=== PATIENT | female | born 1960 | race African-American/Black ===

== ENCOUNTER 2017-06-01 23:26 | Emergency (ER) | payer MEDICAID ==
[~2017-06-01] VITALS: Ht 170.2 cm; Wt 68.2 kg
[~2017-06-01 23:26] MED LIST: CYCL-1 PO; CYCL10TA10 PO; KETO10TA2 PO; ONDA4TAB6 PO; PANT20TA3 PO; SUCR1ORA2 PO
[2017-06-01] MEDS ORDERED: ondansetron 4mg rapidly disintigrating tab PO ONE (23:50)
[2017-06-01] MEDS ORDERED: dicyclomine 10 MG capsule PO ONE (23:50)
[2017-06-01] MEDS ORDERED: LIDOcaine Viscous 15ml cup PO ONE (23:50)
[2017-06-01] MEDS ORDERED: mag hydrox/Alum hydrox/simeth 30ml oral suspension PO ONE (23:50)
[2017-06-02] LABS: BASOPHILS % (AUTO) 0.3 % (0-1); EOSINOPHILS # (AUTO) 0.2 X10'3 (0-0.9); EOSINOPHILS % (AUTO) 2.2 % (0-6); HEMATOCRIT 42.7 % (35.0-45.0); HEMOGLOBIN 14.4 g/dl (12.0-16.0); LYMPHOCYTES # (AUTO) 1.2 X10'3 (1.1-4.8); LYMPHOCYTES % (AUTO) 14.9 % (21-51); MEAN CORPUSCULAR HGB CONC 33.6 % (33.0-36.5); MEAN CORPUSCULAR VOLUME 98.1 FL (78-98); MEAN PLATELET VOLUME 8.9 FL (7.4-10.4); MONOCYTES # (AUTO) 0.4 X10'3 (0-0.9); MONOCYTES % (AUTO) 4.6 % (2-12); NEUTROPHILS # (AUTO) 6.2 X10'3 (1.8-7.7); PLATELET COUNT 178 X10'3 (140-440); RED BLOOD COUNT 4.35 X10'6 (4.20-5.60); RED CELL DISTRIBUTION WIDTH 12.8 % (11.5-14.5)
[2017-06-02 00:10] LABS: PROTHROMBIN TIME 10.2 SECONDS (9.0-12.0)
[2017-06-02 00:14] LABS: ALANINE AMINOTRANSFERASE 20 U/L (12-78); ALBUMIN 3.3 G/DL (3.4-5.0); ALKALINE PHOSPHATASE 78 IU/L (46-116); ANION GAP 5 (8-16); ASPARTATE AMINO TRANSFERASE 18 U/L (10-37); BILIRUBIN,TOTAL 0.9 MG/DL (0.1-1.0); BLOOD UREA NITROGEN 15 MG/DL (7-18); CALCIUM 8.9 MG/DL (8.5-10.1); CHLORIDE 105 MMOL/L (99-107); CREATININE 0.88 MG/DL (0.40-0.90); GLUCOSE 110 MG/DL (70-104); POTASSIUM 4.1 MMOL/L (3.5-5.1); SODIUM 141 MMOL/L (135-145); TOTAL CARBON DIOXIDE 30.6 MMOL/L (24-32); TOTAL PROTEIN 6.7 G/DL (6.4-8.2); eGFR 80 ML/MIN
[2017-06-02 00:14] LABS: CLARITY,URINE CLEAR (Clear); COLOR,URINE YELLOW (Yellow); GLUCOSE, URINE NEGATIVE (Neg); KETONES,URINE TRACE mg/dl (Neg); LEUKOCYTE ESTERASE ,URINE NEGATIVE (Neg); NITRITES, URINE NEGATIVE (Neg); OCCULT BLOOD,URINE NEGATIVE (Neg); PH,URINE 6.5 (4.8-8.0); PROTEIN,URINE NEGATIVE (Neg)
[2017-06-02] MEDS ORDERED: pantoprazole 40 MG vial IV ONE (00:15)
[2017-06-02] MEDS ORDERED: normal saline 1000ML IV soln IVB ONE (00:15)
[2017-06-02] MEDS ORDERED: ondansetron/PF 4mg/2ml inj IV ONE (00:15)
[2017-06-02 00:31] LABS: UA COLLECTION TYPE CLN CATCH MIDSTREAM
[2017-06-02] MEDS ORDERED: ONDA8TAB6 PO (00:40)
[2017-06-02] MEDS ORDERED: OMEP40CA37 PO (00:40)
[2017-06-02 02:19] VITALS: BP 100/60
== END 2017-06-02 02:21 | disposition home or self-care (01) ==
LOC: ER 23:26
DX: R10.84 Generalized abdominal pain (principal); R11.10 Vomiting, unspecified; E11.9 Type 2 diabetes mellitus without complications; F12.10 Cannabis abuse, uncomplicated; F17.200 Nicotine dependence, unspecified, uncomplicated; G89.29 Other chronic pain; Z98.890 Other specified postprocedural states; Z95.0 Presence of cardiac pacemaker; Z79.899 Other long term (current) drug therapy
CPT/HCPCS: 36415; 80053; 81003; 85025; 85610; 96361; 96374; 96375; 99284; C9113; J2405; J7030

== ENCOUNTER 2017-07-15 01:03 | Emergency (ER) | payer MEDICAID ==
[~2017-07-15] VITALS: Ht 170.2 cm; Wt 62.5 kg
[~2017-07-15 01:03] MED LIST changes: +ONDA8TAB6 PO
[2017-07-15] MEDS ORDERED: diazepam 5mg tablet PO ONE (01:25)
[2017-07-15] MEDS ORDERED: ketorolac trometh. 30mg/ml inj. IM ONE (01:25)
[2017-07-15 01:47] LABS: CLARITY,URINE CLEAR (Clear); COLOR,URINE YELLOW (Yellow); GLUCOSE, URINE NEGATIVE (Neg); KETONES,URINE NEGATIVE (Neg); LEUKOCYTE ESTERASE ,URINE NEGATIVE (Neg); NITRITES, URINE NEGATIVE (Neg); OCCULT BLOOD,URINE NEGATIVE (Neg); PROTEIN,URINE NEGATIVE (Neg)
[2017-07-15 01:56] LABS: UA COLLECTION TYPE CLN CATCH MIDSTREAM
[2017-07-15] MEDS ORDERED: IBUP-1985 PO (02:18)
[2017-07-15] MEDS ORDERED: CYCL-1 PO (02:18)
[2017-07-15 02:42] VITALS: BP 92/61
== END 2017-07-15 02:44 | disposition home or self-care (01) ==
LOC: ER 01:04
DX: M54.5 Low back pain (principal); G89.29 Other chronic pain; E11.9 Type 2 diabetes mellitus without complications; F12.10 Cannabis abuse, uncomplicated; Z95.0 Presence of cardiac pacemaker; Z79.899 Other long term (current) drug therapy
CPT/HCPCS: 81003; 96372; 99283; J1885

== ENCOUNTER 2017-10-20 06:38 | Emergency (ER) | payer MEDICAID ==
[~2017-10-20] VITALS: Ht 172.7 cm; Wt 63.6 kg
[~2017-10-20 06:38] MED LIST changes: +COLC0.6T69 PO; +FAMO-128 PO; +IBUP-1985 PO; +INDO50CA PO
[2017-10-20] MEDS ORDERED: ondansetron/PF 4mg/2ml inj IV ONE ×2 (06:45→07:10)
[2017-10-20] MEDS ORDERED: morphine 4 MG/ML inj SYRINge IV PRN (06:45)
[2017-10-20] MEDS ORDERED: normal saline 1000ML IV soln IVB ONE (06:45)
[2017-10-20 07:09] LABS: BASOPHILS % (AUTO) 0.3 % (0-1); EOSINOPHILS # (AUTO) 0.1 X10'3 (0-0.9); EOSINOPHILS % (AUTO) 0.8 % (0-6); HEMATOCRIT 43.5 % (35.0-45.0); HEMOGLOBIN 14.8 g/dl (12.0-16.0); LYMPHOCYTES # (AUTO) 1.3 X10'3 (1.1-4.8); MEAN CORPUSCULAR HGB CONC 34.1 % (33.0-36.5); MEAN CORPUSCULAR VOLUME 96.8 FL (78-98); MEAN PLATELET VOLUME 8.9 FL (7.4-10.4); MONOCYTES # (AUTO) 0.5 X10'3 (0-0.9); MONOCYTES % (AUTO) 4.7 % (2-12); NEUTROPHILS # (AUTO) 8.6 X10'3 (1.8-7.7); NEUTROPHILS % (AUTO) 82.2 % (42-75); PLATELET COUNT 189 X10'3 (140-440); RED BLOOD COUNT 4.49 X10'6 (4.20-5.60); RED CELL DISTRIBUTION WIDTH 13.2 % (11.5-14.5); WHITE BLOOD COUNT 10.4 X10'3 (4.5-11.0)
[2017-10-20 07:24] LABS: ALANINE AMINOTRANSFERASE 16 U/L (12-78); ALBUMIN 3.3 G/DL (3.4-5.0); ALBUMIN/GLOBULIN RATIO 0.9 (1.1-1.5); ALKALINE PHOSPHATASE 87 IU/L (46-116); ANION GAP 6 (8-16); ASPARTATE AMINO TRANSFERASE 17 U/L (10-37); BILIRUBIN,TOTAL 0.5 MG/DL (0.1-1.0); BLOOD UREA NITROGEN 8 MG/DL (7-18); BUN/CREATININE RATIO 9.4 (6.6-38.0); CALCIUM 9.1 MG/DL (8.5-10.1); CHLORIDE 106 MMOL/L (99-107); CREATININE 0.85 MG/DL (0.40-0.90); GLUCOSE 140 MG/DL (70-104); LIPASE 173 U/L (73-393); SODIUM 140 MMOL/L (135-145); TOTAL CARBON DIOXIDE 28.4 MMOL/L (24-32); TOTAL PROTEIN 6.9 G/DL (6.4-8.2); eGFR 83 ML/MIN
[2017-10-20 07:50] VITALS: BP 169/80
[2017-10-20] MEDS ORDERED: haloperidol lactate 5mg/ml inj IM ONE (08:10)
[2017-10-20 08:42] LABS: CLARITY,URINE SLIGHTLY CLOUDY (Clear); COLOR,URINE YELLOW (Yellow); GLUCOSE, URINE NEGATIVE (Neg); KETONES,URINE NEGATIVE (Neg); LEUKOCYTE ESTERASE ,URINE NEGATIVE (Neg); NITRITES, URINE NEGATIVE (Neg); OCCULT BLOOD,URINE NEGATIVE (Neg); PROTEIN,URINE NEGATIVE (Neg)
[2017-10-20] MEDS ORDERED: ONDA8TAB9 PO (08:46)
[2017-10-20 08:49] LABS: UA COLLECTION TYPE CLN CATCH MIDSTREAM
[2017-10-20 08:50] LABS: BACTERIA,URINE 3+ /HPF (Neg); MUCUS STRANDS FEW /LPF (Neg); RBC,URINE 0-2 /HPF (0-2); SQUAMOUS EPITHELIAL CELL,UR FEW /LPF (FEW); WBC,URINE 0-4 /HPF (0-4)
== END 2017-10-20 09:22 | disposition home or self-care (01) ==
LOC: ER 06:39
DX: R10.9 Unspecified abdominal pain (principal); R11.2 Nausea with vomiting, unspecified; E11.9 Type 2 diabetes mellitus without complications; G89.29 Other chronic pain; F12.10 Cannabis abuse, uncomplicated; Z95.0 Presence of cardiac pacemaker; Z79.899 Other long term (current) drug therapy
CPT/HCPCS: 36415; 80053; 81001; 83690; 85025; 96361; 96372; 96374; 96375; 99284; J1630; J2270; J2405; J7030

== ENCOUNTER 2018-10-07 19:14 | Observation (INO) | payer MEDICAID ==
[~2018-10-07] VITALS: Ht 170.2 cm; Wt 60.0 kg
[~2018-10-07 19:14] MED LIST changes: -INDO50CA PO; +INDO50CA14 PO; +ONDA8TAB9 PO
[2018-10-07 19:58] LABS: BASOPHILS # (AUTO) 0.1 X10'3 (0-0.2); BASOPHILS % (AUTO) 1.8 % (0-1); EOSINOPHILS # (AUTO) 0.1 X10'3 (0-0.9); EOSINOPHILS % (AUTO) 2.4 % (0-6); HEMATOCRIT 42.5 % (35.0-45.0); HEMOGLOBIN 14.5 g/dl (12.0-16.0); LYMPHOCYTES # (AUTO) 3.2 X10'3 (1.1-4.8); LYMPHOCYTES % (AUTO) 56.8 % (21-51); MEAN CORPUSCULAR HEMOGLOBIN 32.9 PG (27.0-31.0); MEAN CORPUSCULAR VOLUME 96.8 FL (78-98); MONOCYTES # (AUTO) 0.4 X10'3 (0-0.9); NEUTROPHILS # (AUTO) 1.8 X10'3 (1.8-7.7); PLATELET COUNT 194 X10'3 (140-440); RED BLOOD COUNT 4.39 X10'6 (4.20-5.60); RED CELL DISTRIBUTION WIDTH 13.5 % (11.5-14.5); WHITE BLOOD COUNT 5.7 X10'3 (4.5-11.0)
--- NOTE | 2018-10-07 20:07 | NUR ---
Teleneuro consult initiated at this time per Dr Posey order.
--- NOTE | 2018-10-07 20:10 | NUR ---
TELENEURO IN PROCESS.PAT FAMILY AT BEDSIDE.
[2018-10-07 20:11] LABS: ALANINE AMINOTRANSFERASE 22 U/L (12-78); ALBUMIN 3.5 G/DL (3.4-5.0); ALBUMIN/GLOBULIN RATIO 1.1 (1.1-1.5); ALKALINE PHOSPHATASE 94 IU/L (46-116); ANION GAP 6 (8-16); ASPARTATE AMINO TRANSFERASE 21 U/L (10-37); BILIRUBIN,TOTAL 0.9 MG/DL (0.1-1.0); BLOOD UREA NITROGEN 10 MG/DL (7-18); BUN/CREATININE RATIO 11.8 (6.6-38.0); CALCIUM 9.2 MG/DL (8.5-10.1); CHLORIDE 103 MMOL/L (99-107); CREATININE 0.85 MG/DL (0.40-0.90); GLUCOSE 89 MG/DL (70-104); POTASSIUM 4.3 MMOL/L (3.5-5.1); SODIUM 136 MMOL/L (135-145); TOTAL CARBON DIOXIDE 27.2 MMOL/L (24-32); TOTAL PROTEIN 6.8 G/DL (6.4-8.2); eGFR 83 ML/MIN
[2018-10-07 20:13] LABS: TROPONIN I < 0.04 NG/ML (0.0-0.05)
[2018-10-07 20:19] LABS: PARTIAL THROMBOPLASTIN TIME 32 SECONDS (22-32)
[2018-10-07] MEDS ORDERED: ondansetron/PF 4mg/2ml inj IV PRN (21:00)
[2018-10-07] MEDS ORDERED: dextrose 50%-water 50ml dispensing syringe IV PRN ×2 (21:00)
[2018-10-07] MEDS ORDERED: magnesium 4gm in 100ml NS 100 ML IV PRN (21:00)
[2018-10-07] MEDS ORDERED: insulin Lispro (HumaLOG) vial - multi-dose SQ SCH (21:00)
[2018-10-07] MEDS ORDERED: magnesium Cl slow-release 64mg tablet PO PRN (21:00)
[2018-10-07] MEDS ORDERED: potassium Cl 20 mEq SR tablet PO PRN ×2 (21:00)
[2018-10-07] MEDS ORDERED: glucagon, human recombinant 1mg kit SUBCUT PRN (21:00)
[2018-10-07] MEDS ORDERED: magnesium hydroxide 30ml (MOM) UD suspension PO PRN (21:00)
[2018-10-07] MEDS ORDERED: insulin glargine (Lantus) pen - multi-dose SQ SCH (21:00)
[2018-10-07] MEDS ORDERED: dextrose ORAL solution 15 GM/59 ML bottle PO PRN ×2 (21:00)
[2018-10-07] MEDS ORDERED: acetaminophen 325mg tablet PO PRN ×2 (21:00)
[2018-10-07] MEDS ORDERED: potassium Cl 40MEQ/NS 500ml 500 ML IV PRN ×2 (21:00)
[2018-10-07] MEDS ORDERED: MESSAGE TO PHARMACY PO ONE (21:00)
[2018-10-07] MEDS ORDERED: magnesium 2GM in 50ml NS 50 ML IV PRN (21:00)
[2018-10-07 21:28] LABS: HEMOGLOBIN A1C 5.6 % (4.5-6.2)
--- NOTE | 2018-10-07 21:45 | NUR ---
Patient in room ORTHO 4014. I have received report from Abbe MACK and had the opportunity to ask questions and assume patient care.
[2018-10-07] MEDS ORDERED: iohexol 350MG/ML 100ml bottle IV ONE (21:49)
[2018-10-07] MEDS ORDERED: pantoprazole 40 MG vial IV ONE (22:00)
--- NOTE | 2018-10-07 22:18 | NUR ---
Pt arrived to room 4014b.
[2018-10-07] MEDS: nicotine 21mg patch - 24 hr TD SCH (22:30)
[2018-10-07 23:00] VITALS: BP 111/68
[2018-10-07] MEDS: aspirin 81mg tablet.DR PO SCH (23:42)
[2018-10-08] MEDS: pantoprazole 40MG/NS 100ML BAG 100 ML IV SCH ×4 (01:13→16:40)
[2018-10-08 02:10] VITALS: BP 98/51
--- NOTE | 2018-10-08 06:15 | NUR ---
Patient in room ORTHO 4014. I have received report from Susan MACK and had the opportunity to ask questions and assume patient care.
--- NOTE | 2018-10-08 06:17 | NUR ---
Problems reprioritized. Patient report given to Susan MACK, questions answered & plan of care reviewed with her.
[2018-10-08 06:33] LABS: BASOPHILS # (AUTO) 0.1 X10'3 (0-0.2); BASOPHILS % (AUTO) 2.5 % (0-1); EOSINOPHILS # (AUTO) 0.1 X10'3 (0-0.9); HEMOGLOBIN 14.3 g/dl (12.0-16.0); LYMPHOCYTES # (AUTO) 2.1 X10'3 (1.1-4.8); LYMPHOCYTES % (AUTO) 61.3 % (21-51); MEAN CORPUSCULAR HEMOGLOBIN 33.4 PG (27.0-31.0); MEAN CORPUSCULAR VOLUME 98.2 FL (78-98); MEAN PLATELET VOLUME 9.6 FL (7.4-10.4); MONOCYTES # (AUTO) 0.3 X10'3 (0-0.9); MONOCYTES % (AUTO) 8.7 % (2-12); NEUTROPHILS # (AUTO) 0.8 X10'3 (1.8-7.7); NEUTROPHILS % (AUTO) 23.5 % (42-75); PLATELET COUNT 183 X10'3 (140-440); RED BLOOD COUNT 4.28 X10'6 (4.20-5.60); RED CELL DISTRIBUTION WIDTH 13.4 % (11.5-14.5); WHITE BLOOD COUNT 3.5 X10'3 (4.5-11.0)
[2018-10-08 06:49] LABS: ALANINE AMINOTRANSFERASE 18 U/L (12-78); ALBUMIN 3.2 G/DL (3.4-5.0); ALKALINE PHOSPHATASE 87 IU/L (46-116); ANION GAP 6 (8-16); ASPARTATE AMINO TRANSFERASE 17 U/L (10-37); BILIRUBIN,TOTAL 1.4 MG/DL (0.1-1.0); BLOOD UREA NITROGEN 8 MG/DL (7-18); BUN/CREATININE RATIO 9.4 (6.6-38.0); CALCIUM 9.2 MG/DL (8.5-10.1); CHLORIDE 105 MMOL/L (99-107); CHOL/HDL RATIO 3.7 (0.00-4.99); CHOLESTEROL 202 MG/DL (0-200); CREATININE 0.85 MG/DL (0.40-0.90); GLUCOSE 87 MG/DL (70-104); HDL CHOLESTEROL 54 MG/DL (35-60); LDL CHOLESTEROL 143 MG/DL (50-100); MAGNESIUM 1.9 MG/DL (1.5-2.4); POTASSIUM 4.5 MMOL/L (3.5-5.1); SODIUM 138 MMOL/L (135-145); TOTAL CARBON DIOXIDE 27.5 MMOL/L (24-32); TOTAL PROTEIN 6.3 G/DL (6.4-8.2); TRIGLYCERIDES 40 MG/DL (20-135); eGFR 83 ML/MIN
[2018-10-08 07:04] VITALS: BP 117/78
[2018-10-08] MEDS: aspirin 81mg tablet.DR PO SCH (07:33)
[2018-10-08] MEDS: sucralfate 1gm/10ml UD suspension PO SCH ×3 (07:33→16:00)
[2018-10-08] MEDS: nicotine 21mg patch - 24 hr TD SCH (07:34)
[2018-10-08] MEDS ORDERED: K and/or MAG REPLACEMENT MC SCH (08:00)
[2018-10-08] MEDS ORDERED: enoxaparin 40mg/0.4ml syringe SQ SCH (08:00)
[2018-10-08] MEDS ORDERED: NO HOME MEDS (08:04)
--- NOTE | 2018-10-08 10:53 | NUR ---
OFFERED PT A WALK AND PT REFUSED.
[2018-10-08 11:03] VITALS: BP 109/41
--- NOTE | 2018-10-08 11:17 | NUR ---
Student Medication Administration:For this medication-pass time frame [id number], all medications were reviewed, administered and documented per hospital policy by Hermila Sweeney. Student documentation:I have reviewed and agree with all interventions, assessments performed and documented by Hermila Sweeney.
[2018-10-08] MEDS ORDERED: NUT.TX.GLUC.INTOLER,LAC-FR,SOY (GLUCERNA) 237 ML PO SCH (13:00)
--- NOTE | 2018-10-08 13:07 | NUR ---
Malnutrition consult: Pt admit w/ acute stroke hx T2DM A1C <7. Pt and daughter seen by ROBYN. Both report low/no appetite and weight loss past ~8 months. Daughter reports UBW 195-200# 8 months prior; currently 132# 34% UBW loss significant. Pt has severe weakness and evident visible muscle wasting in addition to wt loss hx which qualifies for severe malnutrition at this time; MD notified. Pt PO 0-25% carb controlled meals not meeting needs. RD provided written malnutrition ONS handout as well as ONS coupons for once at home. Pt agrees to strawberry glucerna TIDWM; MD and dietary notified. Will continue to monitor. Rec: 1. advance to regular diet given low PO per MD approval 2. strawberry glucerna TIDWM 3. wt per rx Addendum: 10/08/18 at [address] Malnutrition consult: Pt admit w/ acute stroke hx T2DM A1C <7. Pt and daughter seen by ROBYN. Both report low/no appetite and weight loss past ~8 months. Daughter reports pt ate nothing yesterday UBW 195-200# 8 months prior; currently 132# 34% UBW loss significant. Pt has severe weakness and evident visible muscle wasting in addition to wt loss hx which qualifies for severe malnutrition at this time; notified. Pt PO 0-25% carb controlled meals not meeting needs. RD provided written malnutrition ONS handout as well as ONS coupons for once at home. Pt agrees to strawberry glucerna TIDWM; and dietary notified. Will continue to monitor. Rec: 1. advance to regular diet given low PO per MD approval 2. strawberry glucerna TIDWM 3. wt per rx Addendum: 10/08/18 at [address] Amended: Links added.
[2018-10-08 16:05] VITALS: BP 103/64
[2018-10-08] MEDS ORDERED: ASPI-1264 PO (18:01)
== END 2018-10-08 17:50 | disposition home or self-care (01) ==
LOC: ER 19:18 → ORTHO 4S 21:05 → CMPBEDREQ 23:26
PROVIDERS: ADMIT Family Medicine; ATTEND Hospitalist
DX: I63.9 Cerebral infarction, unspecified (principal); E11.9 Type 2 diabetes mellitus without complications; M54.9 Dorsalgia, unspecified; I25.2 Old myocardial infarction; J43.9 Emphysema, unspecified; F41.9 Anxiety disorder, unspecified; K27.9 Peptic ulcer, site unspecified, unspecified as acute or chronic, without hemorrhage or perforation; G81.94 Hemiplegia, unspecified affecting left nondominant side; R47.01 Aphasia; F17.210 Nicotine dependence, cigarettes, uncomplicated; Z80.8 Family history of malignant neoplasm of other organs or systems; Z83.3 Family history of diabetes mellitus; Z80.0 Family history of malignant neoplasm of digestive organs; Z82.49 Family history of ischemic heart disease and other diseases of the circulatory system; Z98.890 Other specified postprocedural states; Z95.0 Presence of cardiac pacemaker; Z79.82 Long term (current) use of aspirin; Z79.899 Other long term (current) drug therapy
CPT/HCPCS: 36415; 70450; 70496; 70498; 71045; 80053; 80061; 82948; 83036; 83735; 84484; 85025; 85610; 85730; 87070; 93005; 93306; 93880; 96365; 96366; 96372; 96375; 96376; 97110; 97116; 97162; 97530; 99284; C9113; G0378; J2405; Q9967; 96374; J1650; J1815

== ENCOUNTER 2019-07-25 14:22 | Emergency (ER) | payer MEDICAID ==
[~2019-07-25] VITALS: Ht 170.2 cm; Wt 62.7 kg
[~2019-07-25 14:22] MED LIST changes: -COLC0.6T69 PO; -CYCL-1 PO; -CYCL10TA10 PO; -FAMO-128 PO; -IBUP-1985 PO; -INDO50CA14 PO; -KETO10TA2 PO; +NO HOME MEDS; -ONDA4TAB6 PO; -ONDA8TAB6 PO; -ONDA8TAB9 PO; -PANT20TA3 PO; -SUCR1ORA2 PO
[2019-07-25 14:40] VITALS: BP 110/75
--- NOTE | 2019-07-25 15:14 | NUR ---
c-collar applied to pt because she seems to have some midline neck tenderness when PA was assessing her.
[2019-07-25] MEDS ORDERED: METH-360 PO (16:03)
[2019-07-25] MEDS ORDERED: ketorolac tromethamine 15mg/ml inj. IM ONE (16:05)
[2019-07-25] MEDS ORDERED: orphenadrine citrate 60mg/2ml inj. IM ONE (16:05)
--- NOTE | 2019-07-25 16:06 | NUR ---
CATHERINE Ramsay took the C-collar off the pt
== END 2019-07-25 16:37 | disposition home or self-care (01) ==
LOC: ER 14:22
DX: S16.1XXA Strain of muscle, fascia and tendon at neck level, initial encounter (principal); S00.83XA Contusion of other part of head, initial encounter; E11.9 Type 2 diabetes mellitus without complications; G89.29 Other chronic pain; F12.90 Cannabis use, unspecified, uncomplicated; Z87.11 Personal history of peptic ulcer disease; Z95.0 Presence of cardiac pacemaker; Z98.890 Other specified postprocedural states; W22.8XXA Striking against or struck by other objects, initial encounter; Y93.89 Activity, other specified; Y92.89 Other specified places as the place of occurrence of the external cause; Y99.9 Unspecified external cause status
CPT/HCPCS: 70450; 72125; 96372; 99285; J1885; J2360

== ENCOUNTER 2019-12-19 19:10 | Emergency (ER) | payer MEDICAID ==
[~2019-12-19] VITALS: Ht 171.4 cm; Wt 57.3 kg
[~2019-12-19 19:10] MED LIST changes: +METH-360 PO
[2019-12-19 19:37] LABS: CLARITY,URINE CLOUDY (Clear); COLOR,URINE YELLOW (Yellow); GLUCOSE, URINE NEGATIVE (Neg); KETONES,URINE TRACE mg/dl (Neg); LEUKOCYTE ESTERASE ,URINE MODERATE (Neg); NITRITES, URINE POSITIVE (Neg); OCCULT BLOOD,URINE LARGE (Neg); PROTEIN,URINE >=300 mg/dl (Neg)
[2019-12-19] MEDS ORDERED: PHEN-716 PO (19:40)
[2019-12-19] MEDS ORDERED: phenazopyridine 100mg tablet PO ONE (19:40)
[2019-12-19] MEDS ORDERED: cephalexin 250mg capsule PO ONE (19:40)
[2019-12-19] MEDS ORDERED: CEPH-572 PO (19:40)
[2019-12-19 19:51] LABS: UA COLLECTION TYPE CLN CATCH MIDSTREAM
[2019-12-19 19:59] VITALS: BP 104/65
[2019-12-19 19:59] LABS: BACTERIA,URINE 2+ /HPF (Neg); MUCUS STRANDS NONE SEEN /LPF (Neg); RBC,URINE TNTC /HPF (0-2); SQUAMOUS EPITHELIAL CELL,UR FEW /LPF (FEW); WBC,URINE 50-100 /HPF (0-4)
== END 2019-12-19 20:00 | disposition home or self-care (01) ==
LOC: ER 19:12
DX: N39.0 Urinary tract infection, site not specified (principal); R10.30 Lower abdominal pain, unspecified; E11.9 Type 2 diabetes mellitus without complications; G89.29 Other chronic pain; F12.90 Cannabis use, unspecified, uncomplicated; Z95.0 Presence of cardiac pacemaker; Z98.890 Other specified postprocedural states; Z79.899 Other long term (current) drug therapy
CPT/HCPCS: 81001; 87077; 87088; 87186; 99283

== ENCOUNTER 2020-12-04 19:46 | Emergency (ER) | payer MEDICAID ==
[~2020-12-04] VITALS: Ht 170.2 cm; Wt 59.1 kg
[~2020-12-04 19:46] MED LIST changes: +PHEN-716 PO
[2020-12-04 19:48] VITALS: BP 89/53
== END 2020-12-04 22:04 | disposition home or self-care (01) ==
LOC: ER 19:47
DX: H61.23 Impacted cerumen, bilateral (principal); H92.03 Otalgia, bilateral; E11.9 Type 2 diabetes mellitus without complications; G89.29 Other chronic pain; F12.90 Cannabis use, unspecified, uncomplicated; Z95.0 Presence of cardiac pacemaker; Z98.890 Other specified postprocedural states; Z87.11 Personal history of peptic ulcer disease; Z79.899 Other long term (current) drug therapy
CPT/HCPCS: 99281

== ENCOUNTER 2021-09-26 08:39 | Emergency (ER) | payer MEDICAID ==
[~2021-09-26] VITALS: Ht 170.2 cm; Wt 69.1 kg
[2021-09-26 09:19] VITALS: BP 138/78
[2021-09-26] MEDS ORDERED: NAPR-1170 PO (12:50)
[2021-09-26] MEDS ORDERED: ibuprofen 100 MG/5 ML oral susp PO ONE ×2 (12:50→12:55)
== END 2021-09-26 13:06 | disposition home or self-care (01) ==
LOC: ER 08:39
DX: S80.01XA Contusion of right knee, initial encounter (principal); E11.9 Type 2 diabetes mellitus without complications; F12.90 Cannabis use, unspecified, uncomplicated; G89.29 Other chronic pain; Z87.11 Personal history of peptic ulcer disease; Z98.891 History of uterine scar from previous surgery; Z95.0 Presence of cardiac pacemaker; Z79.899 Other long term (current) drug therapy; W22.8XXA Striking against or struck by other objects, initial encounter; Y93.89 Activity, other specified; Y92.89 Other specified places as the place of occurrence of the external cause; Y99.8 Other external cause status
CPT/HCPCS: 73564; 99284

== ENCOUNTER 2022-09-22 08:47 | Emergency (ER) | payer MEDICAID ==
[~2022-09-22] VITALS: Ht 170.2 cm; Wt 70.2 kg
[~2022-09-22 08:47] MED LIST changes: +NAPR-1170 PO
[2022-09-22 10:06] VITALS: BP 110/82
== END 2022-09-22 10:11 | disposition home or self-care (01) ==
LOC: ER 08:47
DX: M65.341 Trigger finger, right ring finger (principal); E11.9 Type 2 diabetes mellitus without complications; G89.29 Other chronic pain; M54.9 Dorsalgia, unspecified; F12.10 Cannabis abuse, uncomplicated; Z98.890 Other specified postprocedural states; Z79.899 Other long term (current) drug therapy
CPT/HCPCS: 29130; 99284

== ENCOUNTER 2023-11-03 16:18 | Emergency (ER) | payer MEDICAID ==
[~2023-11-03] VITALS: Ht 171.4 cm; Wt 61.6 kg
[~2023-11-03 16:18] MED LIST changes: +HYDR-3972 PO; -METH-360 PO; -NAPR-1170 PO; -NO HOME MEDS; +OMEP40CA21 PO; -PHEN-716 PO
[2023-11-03 16:19] VITALS: BP 106/70; PULSE 72; RESP 16; TEMP 98; O2SAT 95
[2023-11-03] MEDS ORDERED: OXYC-145 PO (17:01)
[2023-11-03] MEDS ORDERED: CYCL-1 PO (17:01)
== END 2023-11-03 17:06 | disposition home or self-care (01) ==
LOC: ER 16:19
DX: S46.911A Strain of unspecified muscle, fascia and tendon at shoulder and upper arm level, right arm, initial encounter (principal); E11.9 Type 2 diabetes mellitus without complications; G89.29 Other chronic pain; M54.9 Dorsalgia, unspecified; Z95.0 Presence of cardiac pacemaker; F12.90 Cannabis use, unspecified, uncomplicated; W18.30XA Fall on same level, unspecified, initial encounter; Y93.89 Activity, other specified; Y92.89 Other specified places as the place of occurrence of the external cause; Y99.8 Other external cause status
CPT/HCPCS: 73030; 99283; A4565

== ENCOUNTER 2024-03-03 06:13 | Outpatient (CLI) | payer MEDICAID ==
[~2024-03-03 06:13] MED LIST changes: +CYCL-1 PO; +OXYC-145 PO
[2024-03-03] MEDS ORDERED: iohexol 300 MG/1 ML 50ml polymer ONE (07:02)
[2024-03-03] MEDS ORDERED: LIDOcaine 1%/PF 5ML 10 MG/ML VIAL ONE (07:02)
== END 2024-03-03 23:59 | disposition home or self-care (01) ==
LOC: RAD 06:13
PROVIDERS: ATTEND Family Medicine
DX: M25.511 Pain in right shoulder (principal); M75.121 Complete rotator cuff tear or rupture of right shoulder, not specified as traumatic; M19.011 Primary osteoarthritis, right shoulder
CPT/HCPCS: 23350; 73200; 77002; J3490; Q9967; 73040

== ENCOUNTER 2024-12-31 08:01 | Emergency (ER) | payer MEDICARE, MEDICAID ==
[~2024-12-31] VITALS: Ht 170.2 cm; Wt 69.2 kg
[2024-12-31 08:12] VITALS: TEMP 98.4
--- NOTE | 2024-12-31 08:32 | Physician Documentation ---
History of Present Illness ~ Chief Complaint: Knee Pain Stated Complaint: R KNEE PAIN Time Seen by MD: 08:09 Primary Medical Doctor: Dr. Reyes [facility] HPI Patient is a very pleasant 64-year-old female that presents to the emergency department for evaluation of right-sided knee pain. Patient reports that she was at her granddaughter's birthday libertarian when she hurt her knee pop and has experienced pain since that time. The injury she reports his approximately 1 week ago. Tetanus witin 5 years: No Medication Reconciliation Allergies: Coded Allergies: No Known Allergies (Unverified , 12/31/24) Scheduled Cyclobenzaprine* (Cyclobenzaprine*), 1 TAB PO Q8H Omeprazole (Prilosec), 1 CAP PO DAILY, (Reported) Scheduled PRN Hydrocodone Bit/Acetaminophen (Hydrocodon-Acetaminophn 10-325 tablet), 1 TAB PO Q6H PRN for pain Oxycodone HCl/Acetaminophen (Percocet 5-325 mg Tablet), 1 TAB PO TID PRN PRN for shoulder pain Past Medical History Past Medical History: Peptic Ulcer Disease, Diabetes, Chronic Back Pain Past Surgical History: , pacemaker Patient History: FH: brain cancer paternal uncle FH: diabetes mellitus FATHER FH: myocardial infarction maternal grandmother FH: stomach cancer paternal anut Other Past Family History: NONCONTRIBUTORY Alcohol Use: None Drug Use: marijuana Lives with: Family Lives In: Home Review of Systems ROS As stated above in the HPI, otherwise all systems are reviewed and negative. Physical Exam Vital Signs: Temperature: 98.4, Source: Temporal, Heart Rate: 66, Respiratory Rate: 14, BP: 131/80, Pulse Oximetry: 100, Weight: 69.200 Oxygen Flow Rate: 0 Physical Exam VITALS: Reviewed and as above. GENERAL: Alert, no apparent distress. HEENT: Normocephalic, atraumatic, PERRL, EOMI, dry mucosa, no erythema RESPIRATORY: Lungs clear, normal breath sounds, no respiratory distress. CHEST: No accessory muscle use, no retractions CV: Regular rate, rhythm, no edema, no murmur, No: JVD GI: Soft, non-tender, bowels sounds present, no rebound, guarding, or rigidity BACK: No CVA tenderness, or swelling MUSCULOSKELETAL No deformities, no edema, mild swelling with pain to the knee SKIN: Warm and dry, no rash NEURO: Oriented x4, No motor or sensory deficit PSYCH: Normal mood and affect, no agitation Progress Results/Orders Results/Orders Orders - ALTAGRACIA SAMS Knee, Complete (12/31/24 08:33) * Knee Brace * (12/31/24 09:02) Brace Or Misc. Request (12/31/24 ) Completed Orders - ALTAGRACIA SAMS Knee, Complete (12/31/24 08:33) Vital Signs 12/31/24 12/31/24 08:12 08:36 Temp 98.4 Pulse 66 64 Resp 14 15 B/P (MAP) 131/80 113/68 (83) Pulse Ox 100 99 O2 Flow Rate 0 Medical Decision Making Findings Patient presents with right knee joint pain. Given history, exam and workup patient likely has arthritis. I have low suspicion for fracture, dislocation, significant ligamentous injury, septic arthritis, gout flare, new autoimmune arthropathy, or gonococcal arthropathy. Departure Disposition: HOME / SELF CARE / HOMELESS Impression: Primary Impression: Knee pain Condition: Stable Additional Instructions: Evaluated in the emergency department for right-sided knee pain x1 day. During imaging shows that there is no fracture or dislocation that is discernible at this time. We have wrapped your knee was Boyd bandages in place you in a brace until you can follow up with your primary care provider. At this time we can not rule out soft tissue injury ligamentous or tendon injury. We will need to be further evaluated by your primary care provider probable utilizing MRI. Tylenol as needed for pain, elevation and ice as tolerated. Did not keep the ice on your knee longer than 10 minutes at a time and always place a cloth between the ice and your skin. Return to the emergency department if you have any worsening of symptoms or any additional concerning symptoms. Follow-up with your primary care Referrals: NO PRIMARY CARE PROVIDER (PCP) Education Educated: Patient Educated regarding: diagnosis, treatment, need for follow up Signature Scribe Signature: .Scribed for Altagracia Sams [employer] Education Teacher by WESTLEY Muhammad . 12/31/24 09:06 Attestation: Scribed for Altagracia Sams [employer] Education Teacher by WESTLEY Muhammad . 12/31/24 09:06 ALTAGRACIA SAMS [facility] Dec 31, 2024 08:32
--- NOTE | 2024-12-31 08:50 | RADIOLOGY REPORT ---
CLINICAL INDICATION: KNEE PAIN,right TECHNIQUE: Right DI KNEE, COMP 4 VW MIN Comparison: KNEE, COMP 4 VW MIN on DOS: 09/26/21 FINDINGS/IMPRESSION: : There is no evidence of acute fracture or dislocation. Small joint effusion.
[2024-12-31 09:25] VITALS: BP 137/83; PULSE 67; RESP 16; O2SAT 97
== END 2024-12-31 09:29 | disposition home or self-care (01) ==
LOC: ER 08:02
DX: M25.561 Pain in right knee (principal); E11.9 Type 2 diabetes mellitus without complications; F12.90 Cannabis use, unspecified, uncomplicated; Z87.11 Personal history of peptic ulcer disease
CPT/HCPCS: 29530; 73564; 99283; A6449